=== PATIENT | female | born 1995 | race Two or more races ===

== ENCOUNTER 2022-10-10 13:11 | Emergency (ER) | payer MEDICAID ==
[~2022-10-10] VITALS: Ht 167.6 cm; Wt 72.7 kg
[2022-10-10 13:57] LABS: Urine WBC None Seen /hpf (0 - 5)
[2022-10-10 14:48] LABS: Urine Bacteria MOD /hpf (None Seen); Urine Blood Negative /uL (Negative); Urine Specific Gravity 1.003 (1.001-1.035)
[2022-10-10 16:43] VITALS: BP 148/85
[2022-10-10] MEDS ORDERED: NITR-87 PO (17:08)
[2022-10-10] MEDS ORDERED: FLUC150T38 PO (17:08)
== END 2022-10-10 17:19 | disposition home or self-care (01) ==
LOC: ER 13:11
DX: N39.0 Urinary tract infection, site not specified (principal); B37.31 Acute candidiasis of vulva and vagina; Z79.899 Other long term (current) drug therapy
CPT/HCPCS: 74176; 81001; 81025